=== PATIENT | male | born 1970 | race Caucasian/White ===

== ENCOUNTER → 2024-01-01 14:21 | Outpatient (REF) | payer BC, SELFPAY | LOC: RAD 14:21 | PROVIDERS: ATTENDING PHYSICIAN Student in an Organized Health Care Education/Training Program; FAMILY PHYSICIAN Physician Assistant | DX: I73.00 Raynaud's syndrome without gangrene (principal); M25.50 Pain in unspecified joint; R76.8 Other specified abnormal immunological findings in serum | CPT/HCPCS: 73130; 73630 ==

== ENCOUNTER → 2024-10-10 12:18 | Outpatient (REF) | payer BC, SELFPAY | LOC: PAVMRI 12:18 | PROVIDERS: ATTENDING PHYSICIAN Student in an Organized Health Care Education/Training Program; FAMILY PHYSICIAN Physician Assistant; REFERRING PHYSICIAN Internal Medicine Cardiovascular Disease | DX: M25.50 Pain in unspecified joint (principal); M54.2 Cervicalgia; R76.8 Other specified abnormal immunological findings in serum | CPT/HCPCS: 73221 ==

== ENCOUNTER → 2025-02-07 06:58 | Outpatient (REF) | payer BC, SELFPAY | LOC: PAVMRI 06:58 | PROVIDERS: ATTENDING PHYSICIAN Student in an Organized Health Care Education/Training Program; FAMILY PHYSICIAN Physician Assistant | DX: M06.9 Rheumatoid arthritis, unspecified (principal) | CPT/HCPCS: 73218 ==